=== PATIENT | female | born 1980 | race Caucasian/White ===

== ENCOUNTER 2019-11-01 15:38 | Outpatient (CLI) | payer OTHER ==
--- NOTE | 2019-11-01 16:37 | RAD ---
EXAM: XR Sacroiliac Joints >=3 View DATE: 11/01/2019 12:00 AM INDICATION: History of sacroiliitis COMPARISON: None. FINDING: SI joints bilaterally appear preserved. No periarticular erosions are evident. No acute fra cture is demonstrated. IMPRESSION:Normal exam
== END 2019-11-01 15:39 | disposition home or self-care (01) ==
LOC: BICRAD 15:38
PROVIDERS: ATTEND Internal Medicine Rheumatology
DX: M46.1 Sacroiliitis, not elsewhere classified (principal)
CPT/HCPCS: 72202